=== PATIENT | male | born 1955 | race Caucasian/White ===

== ENCOUNTER 2023-12-15 16:49 | Emergency (ER) | payer BC, SELFPAY ==
[2023-12-15 16:55] VITALS: BP 194/73; PULSE 82; RESP 16; TEMP 37; O2SAT 95
[2023-12-15] MEDS: Normal Saline 500 ML IV (17:45)
[2023-12-15 17:48] LABS: Lactate 0.9 mmol/L (0.6-1.4)
[2023-12-15 17:55] LABS: Abs Immature Grans 0.09 10^3/uL (0.0-0.06); Absolute Basophil Count 0.04 10^3/uL (0.0-0.2); Absolute Eosinophil Count 0.15 10^3/uL (0.0-0.7); Absolute Monocyte Count 0.81 10^3/uL (0.1-0.8); Basophils % 0.4 %; Eosinophils % 1.6 %; HCT 39.7 % (40.0-50.0); Lymphocytes % 19.4 %; MCH 33.2 pg (27.0-33.0); MCHC 35.3 % (32.0-36.0); MCV 94 fL (80-95); MPV 10.3 fL (8.0-11.0); Monocytes % 8.7 %; Neutrophils % 68.9 %; Platelet Count 167 10^3/uL (130-400); RBC 4.22 10^6/uL (4.36-5.78); RDW 12.1 % (11.8-14.1); RDW-SD 41.8 fL; WBC 9.29 10^3/uL (4.4-10.8)
[2023-12-15 18:00] LABS: ESR 44 mm/hr (0-20)
[2023-12-15 18:03] LABS: C-Reactive Protein 8.89 mg/dL (<or=0.5)
--- NOTE | 2023-12-15 18:03 | DI.CT_ITS ---
Exam(s) CT BRAIN CTA EXAM: CT BRAIN CTA CLINICAL HISTORY: post. and anterior neck pain, eval for mass/path. TECHNIQUE: Imaging Protocol: Axial CT angiography was performed with multi-slice acquisition and mu lti-planar and/or 3D reconstructions. CONTRAST MATERIAL: Intravenous: Omnipaque 350 Contrast volume:structured data mL COMPARISON: CT CT NECK CHEST W from 12/15/[address] THORACIC SPINE RECONS from 12/15/2023 FINDINGS: Ventricles and Extra axial spaces: Normal in size and morphology for the patient's age. Hemorrhage: None. Cerebral parenchyma: Normal. Midline shift: None. Brainstem/Cerebellum: Normal. Calvarium: Normal. Visualized Paranasal sinuses/Mastoids: Clear. Soft Tissues: Unremarkable. Enhancement: Developmental venous anomaly right cerebellar hemisphere. CTA Brain W: Internal Carotid Arteries: Petrous: Normal. Cavernous: Normal. Cerebral: Normal. Middle Cerebral Arteries: Right: No aneurysm, occlusion or significant stenosis. Left: No aneurysm, occlusion or significant stenosis. Anterior Cerebral Arteries: Right: No aneurysm, occlusion or significant stenosis. Left: No aneurysm, occlusion or significant stenosis. Posterior cerebral Arteries: Right: No aneurysm, occlusion or significant stenosis. Left: No aneurysm, occlusion or significant stenosis. Vertebral Arteries: Right: No aneurysm, occlusion or significant stenosis. Left: No aneurysm, occlusion or significant stenosis. Basilar Artery: No aneurysm, occlusion or significant stenosis. IMPRESSION: 1. Normal CTA examination of the [place]. 2. Unremarkable CT Head. RADIATION DOSE DELIVERED: Total DLP Total DLP DATA REPOSITORY: All CT scans at this facility are submitted to the National Radiology Data Registry (NRDR) Dose Index Registry (DIR) with the [employer] (ACR). RADIATION OPTIMIZATION: All CT scans at this facility use at least one of these dose optimization te chniques: automated exposure control; mA and/or kV adjustment per patient size (includes targeted exa ms where dose is matched to clinical indication); or iterative reconstruction.
--- NOTE | 2023-12-15 18:11 | DI.CT_ITS ---
Exam(s) CT NECK CHEST W CT THORACIC SPINE RECONS EXAM: CT NECK CHEST W CLINICAL HISTORY: neck and back pain, eval for spinal abscess TECHNIQUE: Imaging Protocol: Axial computed tomography images with coronal and sagittal reformatted images were created and reviewed CONTRAST MATERIAL: Intravenous: Omnipaque 350 Contrast volume:100 ml Oral: y/ no COMPARISON: CT CT THORACIC SPINE RECONS from 12/15/[address] BRAIN CTA from 12/15/2023 FINDINGS: Neck: Parotids/submandibular/thyroid gland: Normal. Lymphadenopathy: There are scattered lymph nodes seen along the level one to level three all measuri ng less than 8 mm in short axis diameter which are physiologic in nature. Carotids/Jugular: Within normal limits. Soft tissues: Thickening in the left side of the palate and uvula. No visible mass. Retropharyngea l soft tissue thickening anterior to the upper cervical spine. No discrete abscess. The epiglottis and vocal cords are within normal limits. Bones: No fracture. No lytic or blastic lesions. Degenerative changes greatest at C6-7 and C7-T1. Scoliosis at cervical thoracic junction. No visible abnormality within the central cervical canal. There is artifact at the upper thoracic lower with lower cervical levels. Multiple dental caries multiple sites of abnormal periapical lucencies. No evidence of adjacent soft tissue abscess. Chest: Tracheobronchial tree: Patent where visualized. Mediastinum and Jillian: No dominant adenopathy or fluid collection. Small hiatal hernia. Pulmonary parenchyma: No consolidation or dominant measurable mass. Pleura: No effusion or pneumothorax. Heart/Aorta: Thoracic aorta non-dilated. Atherosclerotic changes at the aortic arch. The heart is n ot dilated. No coronary artery calcifications are seen. Pulmonary arteries: No evidence of emboli. Bones: No fracture. No lytic or blastic lesions. Scoliosis and degenerative changes in the thoracic spine. Limited evaluation of thumb spinal canal due to beam hardening artifact. No gross evidence of abscess. No evidence of central canal stenosis. Soft tissues: No evidence of paraspinal abscess or mass. Fatty infiltration of the liver noted. IMPRESSION: Inflammation of the oropharynx and retropharyngeal tissues at the level of the upper cervical spine. No visible retropharyngeal abscess. No evidence of bony destruction. Scoliosis and degenerative changes are noted in the thoracic spine. No evidence of paraspinal absces s or bony destruction. RADIATION DOSE DELIVERED: Total DLP DATA REPOSITORY: All CT scans at this facility are submitted to the National Radiology Data Registry (NRDR) Dose Index Registry (DIR) with the [employer] (ACR). RADIATION OPTIMIZATION: All CT scans at this facility use at least one of these dose optimization te chniques: automated exposure control; mA and/or kV adjustment per patient size (includes targeted exa ms where dose is matched to clinical indication); or iterative reconstruction.
[2023-12-15 18:16] LABS: ALT 25 U/L (16-63); AST 12 U/L (15-37); Albumin 3.3 g/dL (3.4-5.0); Alkaline Phosphatase 74 U/L (46-116); Anion Gap 8.4 mmol/L (3-11); BUN 18 mg/dL (7-18); Bilirubin, Total 0.38 mg/dL (0.2-1.0); CO2 27.6 mmol/L (21.0-32.0); CREATININE 0.8 mg/dL (0.70-1.30); Calcium 9.2 mg/dL (8.5-10.1); Chloride 101 mmol/L (98-107); Glucose 113 mg/dL (74-106); Potassium 3.8 mmol/L (3.5-5.1); Sodium 137 mmol/L (136-145); Total Protein 7.8 g/dL (6.4-8.2)
[2023-12-15 18:45] LABS: Procalcitonin < 0.1 ng/mL
[2023-12-15] MEDS: Omnipaque 350 MG/ML 100 ML BTL IJ (19:12)
[2023-12-15] MEDS: Normal Saline - Diluent 50 ML VIAL IJ (19:12)
--- NOTE | 2023-12-15 19:43 | DI.VRAD_ITS ---
PROCEDURE INFORMATION: Exam: CT Head Without And With Contrast Exam date and time: 12/15/2023 6:38 PM Age: 68 years old Clinical indication: Other: Neck and back pain, eval for spinal abscess TECHNIQUE: Imaging protocol: Computed tomography of the head without and with contrast. Contrast material: OMNI 350; Contrast volume: 100 ml; Contrast route: INTRAVENOUS (IV); COMPARISON: CT NECK CHEST W 12/15/2023 6:38 PM FINDINGS: Brain: No intracranial hemorrhage. No subdural collections. No midline shift. No significant atrophy. No abnormal enhancement. No rim enhancing lesions. No dural or subdural enhancement observed. Cerebral ventricles: No ventriculomegaly. Paranasal sinuses: Negative for layering fluid in the paranasal sinuses. Mastoid air cells: The mastoid air cells are clear. No erosive or destructive lesion is observed. Orbital cavities: Unremarkable. Bones: No bony erosion or destructive change. No acute skull fracture. Soft tissues: Unremarkable. Vasculature: Superior sagittal sinus, straight sinus, transverse sinuses, and sigmoid sinuses fill with contrast and are unremarkable. IMPRESSION: No intracranial hemorrhage. No evidence of intracranial abscess. Dictated and Authenticated by: Nolan Ledezma MD. Ordering:DEMIAN Cm MD
--- NOTE | 2023-12-15 19:47 | DI.VRAD_ITS ---
PROCEDURE INFORMATION: Exam: CT Thoracic Spine Without Contrast Exam date and time: 12/15/2023 6:38 PM Age: 68 years old Clinical indication: Other: Neck and back pain, eval for spinal abscess TECHNIQUE: Imaging protocol: Computed tomography of the thoracic spine without contrast. COMPARISON: CT NECK CHEST W 12/15/2023 6:38 PM FINDINGS: Bones/joints: No acute fracture. Normal alignment. No significant disc bulge or herniation. No severe spinal canal stenosis. No significant neural foraminal narrowing. Soft tissues: No paraspinal mass or collection Minimal left basilar scarring/subsegmental atelectasis Fatty infiltration of the liver noted.A small hiatal hernia is detected. IMPRESSION: No paraspinal mass or collection noted No significant spinal canal stenosis Minimal left basilar subsegmental atelectasis versus scarring Dictated and Authenticated by: Ryan Vicente MD. Ordering:DEMIAN Cm MD
--- NOTE | 2023-12-15 19:54 | DI.VRAD_ITS ---
PROCEDURE INFORMATION: Exam: CT Neck With Contrast Exam date and time: 12/15/2023 6:38 PM Age: 68 years old Clinical indication: Other: Neck and back pain, eval for spinal abscess; Neck pain TECHNIQUE: Imaging protocol: Computed tomography of the neck with contrast. 3D rendering (Not supervised by radiologist): MIP and/or 3D reconstructed images were created by the technologist. Total images: 3189 Contrast material: OMNI 350; Contrast volume: 100 ml; Contrast route: INTRAVENOUS (IV); COMPARISON: CT BRAIN CTA 12/15/2023 6:38 PM FINDINGS: Brain: Visualized intracerebral structures are unremarkable. Salivary glands: Parotid and submandibular glands are unremarkable. Pharynx: Mild soft tissue thickening and airspace effacement at base tongue and along left side of the uvula. Soft palate thickening. Prevertebral and retropharyngeal spaces: Soft tissue thickening anterior to the upper cervical spine without discrete fluid collection. Larynx: No significant finding. Thyroid: No significant finding. Trachea: No significant finding. Lungs: See below. Lymph nodes: No significant adenopathy. Bones/joints: Degenerative disc disease C6-C7 and C7-T1 most notably. No endplate destruction. Mild soft tissue prominence along posterior aspect of the dens. Soft tissues: Unremarkable. IMPRESSION: 1. Consistent with inflammation involving the oropharynx and retropharyngeal tissues. 2. Mild soft tissue thickening anterior epidural space at the level of the dens. 3. Recommend follow-up MRI to exclude epidural phlegmon. PROCEDURE INFORMATION: Exam: CT Chest With Contrast; Diagnostic Exam date and time: 12/15/2023 6:38 PM Age: 68 years old Clinical indication: Other: Neck and back pain, eval for spinal abscess; Neck pain TECHNIQUE: Imaging protocol: Diagnostic computed tomography of the chest with contrast. 3D rendering (Not supervised by radiologist): MIP and/or 3D reconstructed images were created by the technologist. Contrast material: OMNI 350; Contrast volume: 100 ml; Contrast route: INTRAVENOUS (IV); COMPARISON: CT THORACIC SPINE RECONS 12/15/2023 6:38 PM FINDINGS: Lungs: Minimal atelectasis left lung base. No consolidation. Pleural spaces: No pleural effusion or pneumothorax. Heart: No significant finding. Lymph nodes: No mediastinal, hilar or axillary adenopathy. Vasculature: No aortic aneurysm or dissection. Liver: Hepatic steatosis. Bones/joints: Cervicothoracic S shaped scoliosis. No endplate destruction. Limited evaluation thoracic spinal canal secondary to beam hardening. Soft tissues: No paraspinal mass. IMPRESSION: 1. No definite intrathoracic infection. 2. If thoracic spondylodiscitis is suspected correlate with MRI. Dictated and Authenticated by: Anand Morris MD. Ordering:DEMIAN Cm MD
--- NOTE | 2023-12-15 20:04 | ED.GENADUL_ITS ---
Discharge Plan Disposition Patient Disposition: Transfer-Acute Inpatient Care Specific Acute Inpt Facility: [facility] Condition: Serious Discharge Details Chief Complaint: Orthopedic Clinical Impression: Neck pain, Paraspinal abscess Primary Care Provider: Unknown,Unknown ED Provider: Toi Ch Home Meds and New Rx's Prescriptions: No Action cyclobenzaprine 10 mg tablet 10 mg PO TID naproxen [EC-Naprosyn] 500 mg tablet,delayed release (DR/EC) 500 mg PO Q12H oxycodone 5 mg tablet, oral only 5 mg PO Q4H HPI General Date/Time Provider Initiated Documentation: 12/15/23 16:55 . HPI Narrative: 68-year-old male who has no diagnosed past medical history who because he does not see a physician. He is a bernabe. He presents today for evaluation of neck pain/stiffness. Patient states that 1 week ago he developed an onset of neck tightness and stiffness. It was mild. He went to see the [facility] emergency department. At that time he received appropriate medical care given the clinical assessment at that time, and had cervical spine x-rays that were performed which were unremarkable. He was given muscle relaxants, NSAID therapy, and discharge. Pain has continued and not improved. Over the last 24 hours he has developed mild pain and difficulty swallowing. He denies any fever, chest pain or shortness of breath. He states that his neck is painful to move in most any direction. He denies any falls or trauma. He denies any cough, dysuria, or other complaint. He does have multiple dental caries but denies any pain or swelling in the mouth itself. No other complaints at this time. He states that the NSAIDs and muscle relaxants have not been helpful for management of the pain. Today he came to our emergency department at [facility] for a second opinion. Aside for the above-noted components he has no additional complaints. Related Data Home Medications Medication Instructions Recorded Confirmed cyclobenzaprine 10 mg tablet 10 mg PO TID 12/15/23 12/15/23 naproxen 500 mg tablet,delayed 500 mg PO Q12H 12/15/23 12/15/23 release (EC-Naprosyn) oxycodone 5 mg tablet,oral ONLY 5 mg PO Q4H 12/15/23 12/15/23 (not feeding tubes) Allergies Allergy/AdvReac Type Severity Reaction Status Date / Time No Known Allergies Allergy Unverified 12/15/23 16:55 General Stated Complaint: Orthopedic CYRUS: 4 Review of Systems All systems reviewed & are unremarkable except as noted in HPI and below Exam Narrative Exam Narrative: 1.Const: Well-nourished, Well-developed, appearing stated age 2.Eyes: PERRL, no conjunctival injection, and symmetrical lids. 3.ENT: Atraumatic external nose and ears. Moist MM. Neck: Symmetric, trachea midline, No thyromegaly. No evidence of otitis media bilaterally. Patient's posterior oropharynx does not demonstrate uvular deviation. Palpation of the teeth does not demonstrate any evidence of periapical abscess. 4.CVS: +S1/S2, No murmurs or gallops. Peripheral pulses 2+ and equal in all extremities. Brisk capillary refill in all extremities. 5.RESP: Unlabored respiratory effort. Clear to auscultation bilaterally. No wheezes rales or rhonchi 6.GI: Soft, Nontender/Nondistended, No hepatosplenomegaly. No guarding or rebound. 7.MSK: Normocephalic/Atraumatic, Extremities w/o deformity or ttp No cyanosis or clubbing, Normal movement of all extremities 8.Skin: Warm, Dry. No rashes or lesions. 9.Neuro: senior technical analyst II-XII grossly intact. Sensation grossly intact, no focal neurologic deficits. 10.Psych: (AAO) x3. Appropriate mood and affect Course Vital Signs Vital signs: Vital Signs Temperature 37.0 C 12/15/23 16:55 Pulse 82 12/15/23 16:55 Respiratory Rate 16 12/15/23 16:55 Blood Pressure 194/73 H 12/15/23 16:55 Pulse Oximetry 95 12/15/23 16:55 Temperature 37.0 C 12/15/23 16:55 Pulse 82 12/15/23 16:55 Respiratory Rate 16 12/15/23 16:55 Blood Pressure 194/73 H 12/15/23 16:55 Pulse Oximetry 95 12/15/23 16:55 Pain Level 10 12/15/23 16:55 Lab/Test Results Lab/Test Results: Laboratory Tests Range/Units 12/15/23 17:45 WBC (4.4-10.8) 10^3/uL 9.29 RBC (4.36-5.78) 10^6/uL 4.22 L Hgb (13.5-17.5) g/dL 14.0 Hct (40.0-50.0) % 39.7 L MCV (80-95) fL 94 MCH (27.0-33.0) pg 33.2 H MCHC (32.0-36.0) % 35.3 RDW (11.8-14.1) % 12.1 Plt Count (130-400) 10^3/uL 167 MPV (8.0-11.0) fL 10.3 Immature Gran % % 1.0 Neutrophils % % 68.9 Lymphocytes % % 19.4 Monocytes % % 8.7 Eosinophils % % 1.6 Basophils % % 0.4 Nucleated RBC % (0.0-0.3) % 0.0 Absolute Neutrophils (1.2-6.7) 10^3/uL 6.40 Absolute Lymphocytes (1.2-3.4) 10^3/uL 1.80 Absolute Monocytes (0.1-0.8) 10^3/uL 0.81 H Absolute Eosinophils (0.0-0.7) 10^3/uL 0.15 Absolute Basophils (0.0-0.2) 10^3/uL 0.04 ESR (0-20) mm/hr 44 H VBG Lactate (0.6-1.4) mmol/L 0.9 Sodium (136-145) mmol/L 137 Potassium (3.5-5.1) mmol/L 3.8 Chloride (98-107) mmol/L 101 Carbon Dioxide (21.0-32.0) mmol/L 27.6 Anion Gap (3-11) mmol/L 8.4 BUN (7-18) mg/dL 18 Creatinine (0.70-1.30) mg/dL 0.8 Est GFR (CKD-EPI 2020) (mL/min/1.73m2) 96.40 Glucose (74-106) mg/dL 113 H Calcium (8.5-10.1) mg/dL 9.2 Total Bilirubin (0.2-1.0) mg/dL 0.38 AST (15-37) U/L 12 L ALT (16-63) U/L 25 Alkaline Phosphatase (46-116) U/L 74 C-Reactive Protein (<or=0.5) mg/dL 8.89 H Total Protein (6.4-8.2) g/dL 7.8 Albumin (3.4-5.0) g/dL 3.3 L Procalcitonin ng/mL < 0.1 Medical Decision Making 68-year-old male who has no diagnosed past medical history who because he does not see a physician. He is a bernabe. He presents today for evaluation of neck pain/stiffness. Patient states that 1 week ago he developed an onset of neck tightness and stiffness. It was mild. He went to see the [facility] emergency department. At that time he received appropriate medical care given the clinical assessment at that time, and had cervical spine x-rays that were performed which were unremarkable. He was given muscle relaxants, NSAID therapy, and discharge. Pain has continued and not improved. Over the last 24 hours he has developed mild pain and difficulty swallowing. He denies any fever, chest pain or shortness of breath. He states that his neck is painful to move in most any direction. He denies any falls or trauma. He denies any cough, dysuria, or other complaint. He does have multiple dental caries but denies any pain or swelling in the mouth itself. No other complaints at this time. He states that the NSAIDs and muscle relaxants have not been helpful for management of the pain. Today he came to our emergency department at [facility] for a second opinion. Aside for the above-noted components he has no additional comp laints. Physical exam demonstrates no evidence of peritonsillar abscess on exam, mild erythema in the posterior oropharynx. No evidence of periapical abscess on palpation. Patient's neck does demonstrate mild stiffness, but no tenderness focally on palpation. Extension of legs and flexion of the hip does not elicit any pain or passive flexion for the neck. No large masses palpable on the ante rior neck. Minimal lymphadenopathy is noted. No evidence of otitis media. Differential is broad, but peritracheal abscess, paraspinal abscess is certainly of concern especially with the patient's dental caries old age and lack of known medical conditions. Cervical muscle sprain is of concern and on the differential as well. Meningitis appears less likely given clinical assessment and exam. Intracranial etiology or chest pathology is also of concern. We will get a CT scan of the head and neck as well as the chest and thoracic spine. We will treat the patient's pain with morphine, will gently rehydrate, monitor closely and reassess. 9:40 PM Laboratory workup shows no white count however the ESR and CRP are notably elevated. Lactate is normal, electrolytes are stable. Procalcitonin is 0.1. CT scan of the brain demonstrates no acute process, no evidence of pneumonia for the lungs. However the patient does demonstrate evidence of inflammation in the oropharynx, retropharyngeal tissues, and soft tissue thickening anterior epidural space at the level of the dens, concern for potential epidural phlegmon versus abscess. No evidence of peritonsillar abscess. Differential now also includes discitis or osteomyelitis. Cefepime has been ordered and administered, vancomycin will now be started. Blood cultures will be ordered. With these concerning findings patient certainly does warrant emergent MRI. I did contact neurosurgery at [facility] and discussed the case with Dr. Mcintosh, she reviewed the images and the case and recommends emergent transfer for emergent MRI. Di scussed the case with Dr. Hazel in the emergency department, and she accepts the patient for transfer. Patient will be transferred to [facility] for emergent MRI. Discussed case with family and they accept plan. I have extensively reviewed the treatment plan with the patient. I have addressed all patient concerns at this time. I have also discussed the plan with the admitting physician and they agree with the current assessment and plan and have agreed to assume responsibility for the patient. All parties demonstrate verbal understanding and agreement with our assessment and plan at this time. The documentation in this chart was dictated using [employer] dictation software. Please excuse any dictation errors. On reassessment prior to transfer patient still does not have any evidence of ac leeanne neurologic deficit for his upper extremities or peripherally. No altered mental status. At time of transfer the patient was reassessed and continued to demonstrate No signs of acute respiratory distress requiring intubation, hemodynamic instability requiring pressor support, or rapidly declining mental status. FINDINGS: Bones/joints: No acute fracture. Normal alignment. No significant disc bulge or herniation. No severe spinal canal stenosis. No significant neural foraminal narrowing. Soft tissues: No paraspinal mass or collection Minimal left basilar scarring/subsegmental atelectasis Fatty infiltration of the liver noted.A small hiatal hernia is detected. IMPRESSION: No paraspinal mass or collection noted No significant spinal canal stenosis Minimal left basilar subsegmental atelectasis versus scarring Thank you for allowing us to participate in the care of your patient FINDINGS: Brain: Visualized intracerebral structures are unremarkable. Salivary glands: Parotid and submandibular glands are unremarkable. Pharynx: Mild soft tissue thickening and airspace effacement at base tongue and along left side of the uvula. Soft palate thickening. Prevertebral and retropharyngeal spaces: Soft tissue thickening anterior to the upper cervical spine without discrete fluid collection. Larynx: No significant finding. Thyroid: No significant finding. Trachea: No significant finding. Lungs: See below. Lymph nodes: No significant adenopathy. Bones/joints: Degenerative disc disease C6-C7 and C7-T1 most notably. No endplate destruction. Mild soft tissue prominence along posterior aspect of the dens. Soft tissues: Unremarkable. IMPRESSION: 1. Consistent with inflammation involving the oropharynx and retropharyngeal tissues. 2. Mild soft tissue thickening anterior epidural space at the level of the dens. 3. Recommend follow-up MRI to exclude epidural phlegmon. FINDINGS: Lungs: Minimal atelectasis left lung base. No consolidation. Pleural spaces: No pleural effusion or pneumothorax. Heart: No significant finding. Lymph nodes: No mediastinal, hilar or axillary adenopathy. Vasculature: No aortic aneurysm or dissection. Liver: Hepatic steatosis. Bones/joints: Cervicothoracic S shaped scoliosis. No endplate destruction. Limited evaluation thoracic spinal canal secondary to beam hardening. Soft tissues: No paraspinal mass. IMPRESSION: 1. No definite intrathoracic infection. 2. If thoracic spondylodiscitis is suspected correlate with MRI. Thank you for allowing us to participate in the care of your patient. Dictated and Authenticated by: Anand Morris MD 12/15/2023 7:54 PM Eastern Time ([place] & [place]) FINDINGS: Brain: No intracranial hemorrhage. No subdural collections. No midline shift. No significant atrophy. No abnormal enhancement. No rim enhancing lesions. No dural or subdural enhancement observed. Cerebral ventricles: No ventriculomegaly. Paranasal sinuses: Negative for layering fluid in the paranasal sinuses. Mastoid air cells: The mastoid air cells are clear. No erosive or destructive lesion is observed. Orbital cavities: Unremarkable. Bones: No bony erosion or destructive change. No acute skull fracture. Soft tissues: Unremarkable. Vasculature: Superior sagittal sinus, straight sinus, transverse sinuses, and sigmoid sinuses fill with contrast and are unremarkable. IMPRESSION: No intracranial hemorrhage. No evidence of intracranial abscess. Thank you for allowing us to participate in the care of your patient. Dictated and Authenticated by: Nolan Ledezma MD Quality:SDOH Health Related Social Needs: No Data to Display PFSH All Active Problems (Updated 12/15/23 @ 21:44 by Toi Ch DO) Paraspinal abscess (Acute) Neck pain (Acute) Social History Smoking risk assessment performed?: No
[2023-12-15] MEDS: CEFEPIME 2 GM in Normal Saline 100 ML IVPB (21:04)
[2023-12-15] MEDS: MORPHine 4 MG/ML SYR IVP (21:15)
[2023-12-15] MEDS: Lidocaine 5% Patch 1 PATCH TP (21:15)
[2023-12-15 21:30] VITALS: BP 146/79; PULSE 88; RESP 18; O2SAT 94
[2023-12-15] MEDS: VANCOMYCIN 2,000 MG in Normal Saline 500 ML 250 MG IVPB (21:39)
[2023-12-15] MEDS: MORPHine 4 MG/ML SYR (22:30)
== END 2023-12-15 22:31 | disposition short-term general hospital (02) ==
PROVIDERS: Emergency Provider Student in an Organized Health Care Education/Training Program
DX: M54.2 Cervicalgia (principal); G06.1 Intraspinal abscess and granuloma
CPT/HCPCS: 36415; 70491; 70496; 80053; 84145; 85652; 87040; 96361; 96365; 96375; 99285; 71260; 83605; 85025; 86140; J0692; J2270; J3370; J3490

== ENCOUNTER 2024-12-18 16:09 | Outpatient (REF) | payer BC, SELFPAY ==
[2024-12-18 20:11] LABS: ALT 30 U/L (16-63); AST 18 U/L (15-37); Albumin 3.7 g/dL (3.4-5.0); Alkaline Phosphatase 88 U/L (46-116); Anion Gap 8.5 mmol/L (3-11); BUN 18 mg/dL (7-18); Bilirubin, Total 0.3 mg/dL (0.2-1.0); CO2 26.5 mmol/L (21.0-32.0); Calcium 9.0 mg/dL (8.5-10.1); Calculated LDL 133 mg/dL (<100); Chloride 103 mmol/L (98-107); Cholesterol 219 mg/dL (<200); Estimated GFR 99.74 (mL/min/1.73m2); Glucose 113 mg/dL (74-106); HDL Cholesterol 57 mg/dL (>or=40); Potassium 3.7 mmol/L (3.5-5.1); Sodium 138 mmol/L (136-145); TSH 1.22 uIU/mL (0.36-3.74); Total Protein 7.3 g/dL (6.4-8.2); Triglyceride 148 mg/dL (<150)
== END 2024-12-18 16:10 | disposition home or self-care (01) ==
LOC: NCHCN 16:09
PROVIDERS: Visit Provider Internal Medicine
DX: I10 Essential (primary) hypertension (principal); E78.5 Hyperlipidemia, unspecified
CPT/HCPCS: 80053; 80061; 84443

== ENCOUNTER 2025-03-19 09:45 | Outpatient (REF) | payer BC, SELFPAY ==
[2025-03-19 19:19] LABS: HCT 37.6 % (40.0-50.0); HGB 13.3 g/dL (13.5-17.5); MCH 32.7 pg (27.0-33.0); MCHC 35.4 % (32.0-36.0); MCV 92 fL (80-95); MPV 11.4 fL (8.0-11.0); Platelet Count 194 10^3/uL (130-400); RBC 4.07 10^6/uL (4.36-5.78); RDW 12.0 % (11.8-14.1); RDW-SD 40.6 fL; WBC 6.26 10^3/uL (4.4-10.8)
[2025-03-19 20:06] LABS: ALT 58 U/L (16-63); AST 30 U/L (15-37); Albumin 3.8 g/dL (3.4-5.0); Alkaline Phosphatase 75 U/L (46-116); Anion Gap 10.0 mmol/L (3-11); BUN 18 mg/dL (7-18); Bilirubin, Total 0.8 mg/dL (0.2-1.0); CO2 29.0 mmol/L (21.0-32.0); Calcium 8.8 mg/dL (8.5-10.1); Calculated LDL 79 mg/dL (<100); Chloride 100 mmol/L (98-107); Cholesterol 161 mg/dL (<200); Estimated GFR 92.45 (mL/min/1.73m2); Glucose 113 mg/dL (74-106); HDL Cholesterol 70 mg/dL (>or=40); Potassium 4.1 mmol/L (3.5-5.1); Sodium 139 mmol/L (136-145); Total Protein 7.7 g/dL (6.4-8.2); Triglyceride 60 mg/dL (<150)
[2025-03-20 20:05] LABS: PSA, Screening 0.6 ng/mL (<=4.5)
== END 2025-03-19 09:46 | disposition home or self-care (01) ==
LOC: NCHCN 09:45
PROVIDERS: Visit Provider Physician Assistant
DX: E78.5 Hyperlipidemia, unspecified (principal)
CPT/HCPCS: 80053; 80061; 84153; 85027